=== PATIENT | female | born 1940 | race Caucasian/White ===

== ENCOUNTER 2017-10-25 16:03 | Emergency (ER) | payer OTHER ==
[~2017-10-25] VITALS: Ht 157.5 cm; Wt 98.5 kg
[2017-10-25 16:28] VITALS: TEMP 36.9; Ht 157.5 cm; Wt 98.5 kg
[2017-10-25] MEDS ORDERED: LISINOPRIL 10 MG TAB PO STA (17:36)
--- NOTE | 2017-10-25 17:41 | EMERGENCY ROOM VISIT NOTE ---
History Report prepared by Shi: Richard Rae Under the Supervision of: Dr. Jame Jane M.D. First contact with patient: 17:23 Chief Complaint: HYPERTENSION Stated Complaint: ELEVATED BP- PHYSICIAN REFERRED History of Present Illness The patient is a 77 year old female who presents to the Emergency Room with complaints of constant hypertension that began 1 day ago. She states she is currently "feeling good". Patient adds that she was at her [employer] yesterday because she was experiencing pain in her eyes. She states during her visit, her [employer] stated she had hypertension. She followed up with her PCP today, who referred her to the ED after she showed hypertension again. She states she used to take Lasix, Micardis Plus, and Plendil. She states she stopped taking the medications because "she started feeling better". She has associated symptoms of trouble reading. She denies having a headache, shortness of breath, and chest pain. She states the eye doctor "found spots" in her eye. Pertinent medical history includes a cataract surgery performed 10 years ago. Source of History: patient Onset: Prior to arrival Position: other (Hypertension) Timing: constant Associated Symptoms: No headache, No chest pain, No SOB Note: Patient has trouble reading. Review of Systems See HPI for pertinent positives & negatives. A total of 10 systems reviewed and were otherwise negative. Past Medical & Surgical Surgical Problems: (1) History of cataract surgery Family History No pertinent family medical history. Social History Smoking Status: Never Smoker Current/Historical Medications Scheduled Hydrochlorothiazide (Hctz), 25 MG PO DAILY Lisinopril (Zestril), 20 MG PO DAILY Metformin Hcl (Glucophage), 1 TAB PO BID Allergies Coded Allergies: No Known Allergies (Unverified , 10/25/17) Physical Exam Vital Signs Date Time Temp Pulse Resp B/P (MAP) Pulse Ox O2 Delivery O2 Flow Rate FiO2 10/25/17 19:59 16 188/108 96 10/25/17 19:15 74 10/25/17 19:12 96 Room Air 10/25/17 18:38 96 20 204/121 93 10/25/17 16:28 36.9 98 16 223/120 93 Room Air Physical Exam GENERAL: Patient is a healthy-appearing well-nourished female HEAD: Normocephalic atraumatic EYES: Ocular movements intact pupils equal and react to light OROPHARYNX mucous membranes are moist no exudates present no erythema or edema present NECK: Supple no nuchal rigidity CHEST: Good equal expansion LUNGS: Clear and equal to auscultation CARDIAC: Normal S1 and S2 ABDOMEN: Soft nontender no guarding BACK: No CVA tenderness EXTREMITIES: No pain upon palpation normal muscle strength in all groups no clubbing cyanosis or edema NEURO: Patient is following commands and answering questions appropriately. Alert and oriented x3 Cranial Nerves 2-12 grossly intact Medical Decision & Procedures ER Provider Diagnostic Interpretation: Radiology results as stated below per my review and radiologist interpretation: CHEST ONE VIEW PORTABLE CLINICAL HISTORY: 77 years-old Female presenting with severe hypertension. TECHNIQUE: Portable upright AP view of the chest was obtained. COMPARISON: None. FINDINGS: Atherosclerosis of aortic arch. Cardiac silhouette enlarged. Hazy right paramediastinal basilar opacity and opacity obscuring the left cardiac apex. No large pleural effusion or pneumothorax. Degenerative changes of the thoracic spine. Upper abdomen normal. IMPRESSION: 1. Apparent right basilar paramediastinal opacity and lingular opacity may represent prominent pericardial fat pads. No other evidence of acute cardiopulmonary disease. 2. Cardiomegaly. Electronically signed by: Chris Mcmahon M.D. 10/25/2017 5:[address] HEAD WITHOUT CONTRAST (CT) CLINICAL HISTORY: Severe hypertension CONCERN OVER INTRACRANIAL HEMORRHAGE. COMPARISON STUDY: No previous studies for comparison. TECHNIQUE: Axial CT of the brain is performed from the vertex to the skull base. IV contrast was not administered for this examination. A dose lowering technique was utilized adhering to the principles of ALARA. CT DOSE: 537.48 mGy.cm FINDINGS: No intra or extra-axial mass lesions are visualized. There is no CT evidence of acute cortical infarction. There is no evidence of midline shift. There is no acute hemorrhage. No calvarial fractures are visualized. There are patchy white matter hypodensities likely on a small vessel basis. There is no evidence of pathologic ventricular dilatation. There is partial opacification the right maxillary sinus. There is cerumen within the right external auditory canal. IMPRESSION: 1. No acute intracranial findings 2. Partial opacification of the right maxillary sinus Electronically signed by: Grupo Matthews M.D. 10/25/2017 7:36 PM Laboratory Results 10/25/17 18:19 Red Blood Count 4.91, Mean Corpuscular Volume 86.8, Mean Corpuscular Hemoglobin 28.9, Mean Corpuscular Hemoglobin Concent 33.3, Mean Platelet Volume 10.6, Neutrophils (%) (Auto) 67.3, Lymphocytes (%) (Auto) 22.8, Monocytes (%) (Auto) 6.9, Eosinophils (%) (Auto) 2.3, Basophils (%) (Auto) 0.5, Neutrophils # (Auto) 4.36, Lymphocytes # (Auto) 1.48, Monocytes # (Auto) 0.45, Eosinophils # (Auto) 0.15, Basophils # (Auto) 0.03 10/25/17 18:19 Test 10/25/17 18:19 10/25/17 19:00 White Blood Count 6.48 K/uL (4.8-10.8) Red Blood Count 4.91 M/uL (4.2-5.4) Hemoglobin 14.2 g/dL (12.0-16.0) Hematocrit 42.6 % (37-47) Mean Corpuscular Volume 86.8 fL (80-100) Mean Corpuscular Hemoglobin 28.9 pg (25-34) Mean Corpuscular Hemoglobin Concent 33.3 g/dl (32-36) Platelet Count 214 K/uL (130-400) Mean Platelet Volume 10.6 fL (7.4-10.4) Neutrophils (%) (Auto) 67.3 % Lymphocytes (%) (Auto) 22.8 % Monocytes (%) (Auto) 6.9 % Eosinophils (%) (Auto) 2.3 % Basophils (%) (Auto) 0.5 % Neutrophils # (Auto) 4.36 K/uL (1.4-6.5) Lymphocytes # (Auto) 1.48 K/uL (1.2-3.4) Monocytes # (Auto) 0.45 K/uL (0.11-0.59) Eosinophils # (Auto) 0.15 K/uL (0-0.5) Basophils # (Auto) 0.03 K/uL (0-0.2) RDW Standard Deviation 41.2 fL (36.4-46.3) RDW Coefficient of Variation 12.9 % (11.5-14.5) Immature Granulocyte % (Auto) 0.2 % Immature Granulocyte # (Auto) 0.01 K/uL (0.00-0.02) Prothrombin Time 10.5 SECONDS (9.0-12.0) Prothromb Time International Ratio 1.0 (0.9-1.1) Activated Partial Thromboplast Time 25.7 SECONDS (21.0-31.0) Partial Thromboplastin Ratio 1.0 Anion Gap 6.0 mmol/L (3-11) Est Creatinine Clear Calc Drug Dose 76.2 ml/min Estimated GFR () 98.2 Estimated GFR (Non- 84.8 BUN/Creatinine Ratio 18.7 (10-20) Estimated Average Glucose 235 mg/dl Hemoglobin A1c 9.8 % (4.5-5.6) Calcium Level 9.3 mg/dl (8.5-10.1) Total Bilirubin 0.3 mg/dl (0.2-1) Direct Bilirubin < 0.1 mg/dl (0-0.2) Aspartate Amino Transf (AST/SGOT) 15 U/L (15-37) Alanine Aminotransferase (ALT/SGPT) 25 U/L (12-78) Alkaline Phosphatase 77 U/L (45-117) Total Creatine Kinase 89 U/L (26-192) Creatine Kinase MB 3.1 ng/ml (0.5-3.6) Creatine Kinase MB Ratio 3.5 (0-3.0) Troponin I 0.016 ng/ml (0-0.045) Total Protein 7.3 gm/dl (6.4-8.2) Albumin 3.5 gm/dl (3.4-5.0) Lipase 163 U/L (73-393) Thyroid Stimulating Hormone (TSH) 4.700 uIu/ml (0.300-4.500) Urine Color YELLOW Urine Appearance CLEAR (CLEAR) Urine pH 7.5 (4.5-7.5) Urine Specific [place] 1.017 (1.000-1.030) Urine Protein TRACE (NEG) Urine Glucose (UA) NEG (NEG) Urine Ketones TRACE (NEG) Urine Occult Blood NEG (NEG) Urine Nitrite NEG (NEG) Urine Bilirubin NEG (NEG) Urine Urobilinogen NEG (NEG) Urine Leukocyte Esterase MODERATE (NEG) Urine WBC (Auto) 10-30 /hpf (0-5) Urine RBC (Auto) 0-4 /hpf (0-4) Urine Hyaline Casts (Auto) 0 /lpf (0-5) Urine Epithelial Cells (Auto) >30 /lpf (0-5) Urine Bacteria (Auto) 1+ (NEG) Labs reviewed by ED physician. Medications Administered Medications (Trade) Dose Ordered Sig/Nuzhat Route Start Time Stop Time Status Last Admin Dose Admin Lisinopril (Zestril Tab) 10 mg STK-MED ONCE .ROUTE 10/25/17 18:32 10/25/17 18:33 DC 10/25/17 18:40 10 MG Hydrochlorothiazide (Hydrochlorothiazide Tab) 50 mg NOW STAT PO 10/25/17 18:54 10/25/17 19:02 DC 10/25/17 19:09 50 MG ECG Indication: other (Hypertension) Rate (beats per minute): 98 Rhythm: sinus rhythm Findings: 1st degree AV block, RBBB, other (No exterior ischemia) ED Course 1725: Past medical records reviewed. The patient was evaluated in room C11B. A complete history and physical examination was performed. 1736: Lisinopril 10mg PO 1832: Lisinopril 10mg . ROUTE 1854: Hydrochlorothiazide 50mg PO 1906: Hydrochlorothiazide 50mg .ROUTE 195: Upon reexamination the patient is resting comfortably. I discussed results and treatment plan with the patient. She verbalizes agreement and understanding. The patient is ready for discharge. Medical Decision Differential diagnosis: Etiologies such as metabolic, infection, hypo/hyperglycemia, electrolyte abnormalities, cardiac sources, intracerebral event, toxicologic, neurologic, as well as others were entertained. This is a 77-year-old female who presents emergency department sent in by her primary care physician over concerns of her blood pressure. The patient has been on 3 medications in the past including Lasix a calcium channel tapan. She was started on lisinopril and hydrochlorothiazide in the emergency department. I will note that she is asymptomatic and has no complaints. She also does not wish to be admitted. She is also hyperglycemic. I strongly recommended to the patient that she follow-up cardiology. Patient was in agreement with the treatment plan. Medication Reconcilliation Current Medication List: was personally reviewed by me Blood Pressure Screening Patient's blood pressure: Elevated blood pressure Blood pressure disposition: Referred to PCP Impression Primary Impression: Hypertension Additional Impression: Hyperglycemia Scribe Attestation The scribe's documentation has been prepared under my direction and personally reviewed by me in its entirety. I confirm that the note above accurately reflects all work, treatment, procedures, and medical decision making performed by me. Departure Information Dispostion Home / Self-Care Prescriptions Metformin Hcl (GLUCOPHAGE) 500 Mg Tab 1 TAB PO BID for 30 Days, #60 TAB Prov: Jame Jane MD 10/25/17 Hydrochlorothiazide (HCTZ) 25 Mg Tab 25 MG PO DAILY for 30 Days, #30 TAB Prov: Jame Jane MD 10/25/17 Lisinopril (ZESTRIL) 20 Mg Tab 20 MG PO DAILY for 30 Days, #30 TAB Prov: Jame Jane MD 10/25/17 Referrals Cheri Clark M.D. (PCP) Forms HOME CARE DOCUMENTATION FORM, IMPORTANT VISIT INFORMATION, WORK / SCHOOL INSTRUCTIONS Patient Instructions ED Hyperglycemia Diabetic, ED Hypertension Conf Out Of Control, Hypertension Control, Hypertension [place], My [facility] Additional Instructions Follow up with Dr Mckeon's office Need follow up with PCP You were found to have an elevated blood pressure today (>120 sytolic or >90 diastolic). Per medicare guidelines, you need to follow up with this blood pressure screening with your Primary Care Physician (PCP). For a new PCP call [phone]. You have been examined and treated today on an emergency basis only. This is not a substitute for, or an effort to provide, complete comprehensive medical care. It is impossible to recognize and treat all injuries or illnesses in a single emergency department visit. It is therefore important that you follow up closely with Dr Clark. Call as soon as possible for an appointment. Thank you for your time and consideration. I look forward to speaking with you again soon. Please don't hesitate to call us if you have any questions. Problem Qualifiers Primary Impression: Hypertension Hypertension type: unspecified Qualified Codes: I10 - Essential (primary) hypertension
--- NOTE | 2017-10-25 17:58 | DIAGNOSTIC IMAGING REPORT ---
CHEST ONE VIEW PORTABLE CLINICAL HISTORY: 77 years-old Female presenting with severe hypertension. TECHNIQUE: Portable upright AP view of the chest was obtained. COMPARISON: None. FINDINGS: Atherosclerosis of aortic arch. Cardiac silhouette enlarged. Hazy right paramediastinal basilar opacity and opacity obscuring the left cardiac apex. No large pleural effusion or pneumothorax. Degenerative changes of the thoracic spine. Upper abdomen normal. IMPRESSION: 1. Apparent right basilar paramediastinal opacity and lingular opacity may represent prominent pericardial fat pads. No other evidence of acute cardiopulmonary disease. 2. Cardiomegaly. Electronically signed by: Chris Mcmahon M.D. 10/25/2017 5:57 PM Dictated Date/Time: 10/25/2017 5:54 PM
[2017-10-25 18:32] LABS: BASO % 0.5 %; BASO ABS # 0.03 K/uL (0-0.2); EOS % 2.3 %; EOS ABS # 0.15 K/uL (0-0.5); HEMATOCRIT 42.6 % (37-47); HEMOGLOBIN 14.2 g/dL (12.0-16.0); IG# 0.01 K/uL (0.00-0.02); LYMPH % 22.8 %; LYMPH ABS # 1.48 K/uL (1.2-3.4); MEAN CELL VOLUME 86.8 fL (80-100); MEAN CORPUSCULAR HEMOGLOBIN 28.9 pg (25-34); MEAN CORPUSCULAR HGB CONC 33.3 g/dl (32-36); MEAN PLATELET VOLUME 10.6 fL (7.4-10.4); MONO % 6.9 %; MONO ABS # 0.45 K/uL (0.11-0.59); NEUT % 67.3 %; NEUT ABS # 4.36 K/uL (1.4-6.5); PLATELET COUNT 214 K/uL (130-400); RED CELL DISTRIBUTION WIDTH CV 12.9 % (11.5-14.5); RED CELL DISTRIBUTION WIDTH SD 41.2 fL (36.4-46.3); WHITE BLOOD COUNT 6.48 K/uL (4.8-10.8)
[2017-10-25] MEDS ORDERED: LISINOPRIL 5 MG TAB ONE (18:32)
[2017-10-25 18:50] LABS: PTT PATIENT 25.7 SECONDS (21.0-31.0)
[2017-10-25] MEDS ORDERED: HYDROCHLOROTHIAZIDE 50 MG TAB PO STA (18:54)
[2017-10-25 19:02] LABS: ALBUMIN 3.5 gm/dl (3.4-5.0); BLOOD UREA NITROGEN 13 mg/dl (7-18); CALCIUM 9.3 mg/dl (8.5-10.1); CARBON DIOXIDE 28 mmol/L (21-32); GLUCOSE 231 mg/dl (70-99); LIPASE 163 U/L (73-393); POTASSIUM 4.1 mmol/L (3.5-5.1); SODIUM 137 mmol/L (136-145)
[2017-10-25] MEDS ORDERED: HYDROCHLOROTHIAZIDE 25 MG TAB ONE (19:06)
[2017-10-25 19:12] VITALS: O2SAT 96
[2017-10-25 19:13] LABS: ALKALINE PHOSPHATASE 77 U/L (45-117); ALT/SGPT 25 U/L (12-78); AST/SGOT 15 U/L (15-37); CKMB 3.1 ng/ml (0.5-3.6); TOTAL PROTEIN 7.3 gm/dl (6.4-8.2)
[2017-10-25 19:15] VITALS: PULSE 74
--- NOTE | 2017-10-25 19:37 | DIAGNOSTIC IMAGING REPORT ---
CT HEAD WITHOUT CONTRAST (CT) CLINICAL HISTORY: Severe hypertension CONCERN OVER INTRACRANIAL HEMORRHAGE. COMPARISON STUDY: No previous studies for comparison. TECHNIQUE: Axial CT of the brain is performed from the vertex to the skull base. IV contrast was not administered for this examination. A dose lowering technique was utilized adhering to the principles of ALARA. CT DOSE: 537.48 mGy.cm FINDINGS: No intra or extra-axial mass lesions are visualized. There is no CT evidence of acute cortical infarction. There is no evidence of midline shift. There is no acute hemorrhage. No calvarial fractures are visualized. There are patchy white matter hypodensities likely on a small vessel basis. There is no evidence of pathologic ventricular dilatation. There is partial opacification the right maxillary sinus. There is cerumen within the right external auditory canal. IMPRESSION: 1. No acute intracranial findings 2. Partial opacification of the right maxillary sinus Electronically signed by: Grupo Matthews M.D. 10/25/2017 7:36 PM Dictated Date/Time: 10/25/2017 7:34 PM
[2017-10-25] MEDS ORDERED: METF500T PO (19:48)
[2017-10-25] MEDS ORDERED: HYDR25TA4 PO (19:48)
[2017-10-25] MEDS ORDERED: LISI-792 PO (19:48)
[2017-10-25 19:59] VITALS: BP 188/108; O2SAT 96
[2017-10-26 06:28] LABS: HEMOGLOBIN A1C 9.8 % (4.5-5.6)
== END 2017-10-25 20:00 | disposition home or self-care (01) ==
LOC: C.EDB 16:06 → C.EDC 20:00
DX: I10 Essential (primary) hypertension (principal); R73.9 Hyperglycemia, unspecified; I44.0 Atrioventricular block, first degree; I45.10 Unspecified right bundle-branch block; Z79.899 Other long term (current) drug therapy; Z98.49 Cataract extraction status, unspecified eye; Z79.84 Long term (current) use of oral hypoglycemic drugs